=== PATIENT | male | born 1985 | race Caucasian/White ===

== ENCOUNTER 2016-04-07 00:49 | Emergency (ER) | payer SELFPAY ==
[2016-04-07 01:03] VITALS: BP 153/88; PULSE 88; RESP 16; TEMP 97.1
--- NOTE | 2016-04-07 01:18 | ED ---
General Adult HPI - General Chief complaint: Alcohol Stated complaint: ETOH Time Seen by Provider: 04/07/16 00:49 Source: patient, EMS, RN notes reviewed, old records reviewed Mode of arrival: EMS Limitations: no limitations - History of Present Illness Initial comments: This is a 22-year-old male brought to the emergency room today for evaluation by for here and placed chronic, patient is brought in for evaluation, patient's brought in for being found passed out at a stop sign in his car. Patient admitted to drinking alcohol tonight. Denies any other complaints. Per PD please had [place] injury, per patient he has no complaints no injury, the car was imperfectly working order, patient denies other drugs, does admit to alcohol again, no history of alcohol draw Review of Systems ROS Statement: Those systems with pertinent positive or pertinent negative responses have been documented in the HPI. ROS Other: All systems not noted in ROS Statement are negative. Past Medical History Past Medical History: No Reported History History of Any Multi-Drug Resistant Organisms: None Reported Past Surgical History: No Surgical Hx Reported Past Psychological History: No Psychological Hx Reported Smoking Status: Current every day smoker Past Alcohol Use History: Daily Past Drug Use History: None Reported General Exam Limitations: no limitations General appearance: alert, in no apparent distress Head exam: Present: atraumatic, normocephalic, normal inspection Eye exam: Present: normal appearance, PERRL, EOMI. Absent: scleral icterus, conjunctival injection, periorbital swelling ENT exam: Present: normal exam, mucous membranes moist Neck exam: Present: normal inspection. Absent: tenderness, meningismus, lymphadenopathy Respiratory exam: Present: normal lung sounds bilaterally. Absent: respiratory distress, wheezes, rales, rhonchi, stridor Cardiovascular Exam: Present: regular rate, normal rhythm, normal heart sounds. Absent: systolic murmur, diastolic murmur, rubs, gallop, clicks GI/Abdominal exam: Present: soft, normal bowel sounds. Absent: distended, tenderness, guarding, rebound, rigid Extremities exam: Present: normal inspection, full ROM, normal capillary refill. Absent: tenderness, pedal edema, joint swelling, calf tenderness Back exam: Present: normal inspection Neurological exam: Present: alert, oriented X3, CN II-XII intact Psychiatric exam: Present: normal affect, normal mood Skin exam: Present: warm, dry, intact, normal color. Absent: rash Course Vital Signs 04/07/16 00:56 Temperature 97.1 F L Pulse Rate 88 Respiratory 16 Rate Blood Pressure 153/88 O2 Sat by Pulse 98 Oximetry - Reevaluation(s) Reevaluation #1: 04/07/16 01:17 Patient's in no acute distress Medical Decision Making - Medical Decision Making 30 male here for evaluation of alcohol intoxication, patient admits positive EtOH, no history of withdrawal, vital signs normal and stable, exam is normal patient can be discharged for clearance to long-term Disposition Clinical Impression: Alcoholic intoxication Disposition: HOME SELF-CARE Condition: Fair Instructions: Alcohol Intoxication (ED) Referrals: None,Stated [Primary Care Provider] - 1-2 days
== END 2016-04-07 01:36 | disposition home or self-care (01) ==
LOC: EC 00:49
DX: F10.129 Alcohol abuse with intoxication, unspecified (principal); F17.200 Nicotine dependence, unspecified, uncomplicated
CPT/HCPCS: 82075; 99284

== ENCOUNTER 2019-05-08 10:51 | Inpatient (IN) | payer OTHER ==
[2019-05-08] MEDS ORDERED: ONDANSETRON 4 MG/2 ML VIAL IVP STA (11:13)
[2019-05-08] MEDS ORDERED: SODIUM CHLORIDE 0.9% 2,000 ML IV STA (11:13)
--- NOTE | 2019-05-08 11:28 | ED ---
Abdominal Pain HPI - General Chief Complaint: Abdominal Pain Stated Complaint: fever, cough Time Seen by Provider: 05/08/19 11:05 Source: patient, RN notes reviewed Mode of arrival: ambulatory Limitations: no limitations - History of Present Illness Initial Comments: This a 33-year-old male presents emergency Department chief complaint of abdominal pain, nausea vomiting. Patient states started 3 days ago sharp squeezing-type midabdominal pain. Patient states pain is subsided some he has had continuous vomiting and low-grade temps. Patient denies any sick contacts. Patient denies any prior medical history no abdominal surgeries no dysuria no he maturia denies any hematemesis or coffee-ground emesis. - Related Data Allergies Allergy/AdvReac Type Severity Reaction Status Date / Time No Known Allergies Allergy Verified 05/08/19 11:04 Review of Systems ROS Statement: Those systems with pertinent positive or pertinent negative responses have been documented in the HPI. ROS Other: All systems not noted in ROS Statement are negative. Past Medical History Past Medical History: No Reported History History of Any Multi-Drug Resistant Organisms: None Reported Past Surgical History: No Surgical Hx Reported Past Psychological History: No Psychological Hx Reported Smoking Status: Current every day smoker Past Alcohol Use History: Daily Past Drug Use History: None Reported General Exam Limitations: no limitations General appearance: alert, in no apparent distress Head exam: Present: atraumatic, normocephalic, normal inspection Eye exam: Present: normal appearance, PERRL, EOMI. Absent: scleral icterus, conjunctival injection, periorbital swelling ENT exam: Present: normal exam, normal oropharynx, mucous membranes moist Neck exam: Present: normal inspection. Absent: tenderness, meningismus, lymphadenopathy Respiratory exam: Present: normal lung sounds bilaterally. Absent: respiratory distress, wheezes, rales, rhonchi, stridor Cardiovascular Exam: Present: normal rhythm, tachycardia, normal heart sounds. Absent: systolic murmur, diastolic murmur, rubs, gallop, clicks GI/Abdominal exam: Present: soft, tenderness, normal bowel sounds. Absent: distended, guarding, rebound, rigid Back exam: Absent: CVA tenderness (R), CVA tenderness (L) Skin exam: Present: warm, dry, intact, normal color. Absent: rash Course Vital Signs 05/08/19 05/08/19 11:01 11:04 Temperature 97.8 F Pulse Rate 128 H Respiratory 19 20 Rate Blood Pressure 137/93 O2 Sat by Pulse 99 Oximetry Medical Decision Making - Medical Decision Making 33-year-old presented for abdominal pain. CT shows evidence of mid gut volvulus with obstruction. Discussed with Dr. Reed NG tube will be placed patient will be admitted - Lab Data Result diagrams: 05/08/19 11:51 05/08/19 11:51 Lab Results 05/08/19 05/08/19 05/08/19 Range/Units 11:51 11:51 11:51 WBC 8.5 (3.8-10.6) k/uL RBC 6.28 H (4.30-5.90) m/uL Hgb 20.0 H* (13.0-17.5) gm/dL Hct 56.8 H (39.0-53.0) % MCV 90.4 (80.0-100.0) fL MCH 31.9 (25.0-35.0) pg MCHC 35.2 (31.0-37.0) g/dL RDW 12.3 (11.5-15.5) % Plt Count 201 (150-450) k/uL Neutrophils % 76 % Lymphocytes % 9 % Monocytes % 13 % Eosinophils % 0 % Basophils % 0 % Neutrophils # 6.5 (1.3-7.7) k/uL Lymphocytes # 0.7 L (1.0-4.8) k/uL Monocytes # 1.1 H (0-1.0) k/uL Eosinophils # 0.0 (0-0.7) k/uL Basophils # 0.0 (0-0.2) k/uL Sodium 131 L (137-145) mmol/L Potassium 4.3 (3.5-5.1) mmol/L Chloride 90 L (98-107) mmol/L Carbon Dioxide 25 (22-30) mmol/L Anion Gap 16 mmol/L BUN 26 H (9-20) mg/dL Creatinine 1.01 (0.66-1.25) mg/dL Est GFR (CKD-EPI)AfAm >90 (>60 ml/min/1.73 sqM) Est GFR (CKD-EPI)NonAf >90 (>60 ml/min/1.73 sqM) Glucose 165 H (74-99) mg/dL Plasma Lactic Acid Ben 1.6 (0.7-2.0) mmol/L Calcium 10.5 H (8.4-10.2) mg/dL Total Bilirubin 1.4 H (0.2-1.3) mg/dL AST 37 (17-59) U/L ALT 44 (4-49) U/L Alkaline Phosphatase 51 (38-126) U/L Total Protein 8.1 (6.3-8.2) g/dL Albumin 4.9 (3.5-5.0) g/dL Amylase 56 (30-110) U/L Lipase 120 (23-300) U/L Urine Color Urine Appearance (Clear) Urine pH (5.0-8.0) Ur Specific [place] (1.001-1.035) Urine Protein (Negative) Urine Glucose (UA) (Negative) Urine Ketones (Negative) Urine Blood (Negative) Urine Nitrite (Negative) Urine Bilirubin (Negative) Urine Urobilinogen (<2.0) mg/dL Ur Leukocyte Esterase (Negative) Urine RBC (0-5) /hpf Urine WBC (0-5) /hpf Urine Bacteria (None) /hpf Hyaline Casts (0-2) /lpf Urine Mucus (None) /hpf 03/13/20 Range/Units 12:20 WBC (3.8-10.6) k/uL RBC (4.30-5.90) m/uL Hgb (13.0-17.5) gm/dL Hct (39.0-53.0) % MCV (80.0-100.0) fL MCH (25.0-35.0) pg MCHC (31.0-37.0) g/dL RDW (11.5-15.5) % Plt Count (150-450) k/uL Neutrophils % % Lymphocytes % % Monocytes % % Eosinophils % % Basophils % % Neutrophils # (1.3-7.7) k/uL Lymphocytes # (1.0-4.8) k/uL Monocytes # (0-1.0) k/uL Eosinophils # (0-0.7) k/uL Basophils # (0-0.2) k/uL Sodium (137-145) mmol/L Potassium (3.5-5.1) mmol/L Chloride (98-107) mmol/L Carbon Dioxide (22-30) mmol/L Anion Gap mmol/L BUN (9-20) mg/dL Creatinine (0.66-1.25) mg/dL Est GFR (CKD-EPI)AfAm (>60 ml/min/1.73 sqM) Est GFR (CKD-EPI)NonAf (>60 ml/min/1.73 sqM) Glucose (74-99) mg/dL Plasma Lactic Acid Ben (0.7-2.0) mmol/L Calcium (8.4-10.2) mg/dL Total Bilirubin (0.2-1.3) mg/dL AST (17-59) U/L ALT (4-49) U/L Alkaline Phosphatase (38-126) U/L Total Protein (6.3-8.2) g/dL Albumin (3.5-5.0) g/dL Amylase (30-110) U/L Lipase (23-300) U/L Urine Color Yellow Urine Appearance Cloudy (Clear) Urine pH 6.0 (5.0-8.0) Ur Specific [place] >1.050 H (1.001-1.035) Urine Protein 2+ H (Negative) Urine Glucose (UA) Negative (Negative) Urine Ketones Trace H (Negative) Urine Blood Negative (Negative) Urine Nitrite Negative (Negative) Urine Bilirubin 1+ H (Negative) Urine Urobilinogen 3.0 (<2.0) mg/dL Ur Leukocyte Esterase Negative (Negative) Urine RBC 2 (0-5) /hpf Urine WBC 1 (0-5) /hpf Urine Bacteria Rare H (None) /hpf Hyaline Casts 21 H (0-2) /lpf Urine Mucus Many H (None) /hpf Disposition Clinical Impression: Midgut volvulus, Bowel obstruction Disposition: ADMITTED IP TO THIS [facility] Condition: Fair Referrals: None,Stated [Primary Care Provider] - 1-2 days
[2019-05-08 12:13] LABS: Basophils % (A) 0 %; Eosinophils % (A) 0 %; Lymphocytes # (A) 0.7 k/uL (1.0-4.8); Lymphocytes % (A) 9 %; MCH 31.9 pg (25.0-35.0); MCHC 35.2 g/dL (31.0-37.0); MCV 90.4 fL (80.0-100.0); Mean Platelet Volume 8.1; Monocytes # (A) 1.1 k/uL (0-1.0); Monocytes % (A) 13 %; Neutrophils # (A) 6.5 k/uL (1.3-7.7); Neutrophils % (A) 76 %; Platelet Count 201 k/uL (150-450); RBC 6.28 m/uL (4.30-5.90); RDW 12.3 % (11.5-15.5); WBC 8.5 k/uL (3.8-10.6)
[2019-05-08 12:15] LABS: HCT 56.8 % (39.0-53.0)
--- NOTE | 2019-05-08 12:26 | CT ---
EXAMINATION TYPE: CT abdomen pelvis w con DATE OF EXAM: 05/08/2019 COMPARISON: HISTORY: epigastric pain CT DLP: 1321.2 mGycm Automated exposure control for dose reduction was used. TECHNIQUE: Helical acquisition of images from the lung bases through the pelvis have been completed. CONTRAST: Performed without Oral Contrast and with IV Contrast, patient injected with 100 mL of Isovue 300. FINDINGS: LUNG BASES: No significant abnormality is appreciated. AORTA: No significant abnormality is appreciated. LIVER/GB: Low-attenuation within the liver likely represents hepatic steatosis, liver is enlarged, ga llbladder is normal, correlate. PANCREAS: No significant abnormality is seen. SPLEEN: No significant abnormality is seen. ADRENALS: No significant abnormality is seen. KIDNEYS: No significant abnormality is seen. REPRODUCTIVE ORGANS: No significant abnormality is seen BOWEL: There are dilated loops of fluid-filled small bowel bowel present within much of the abdomen. Apparent twist of the root of the mesentery is present, axial images #41 through 50. Fourth portion of the duodenum courses to the right of midline. Ilium is not distended and is decompressed. Stomach is fluid-filled and distended. Diverticular changes associated with the sigmoid colon. FREE AIR: No Free Air visible. ASCITES: There is free fluid within the pelvis, inguinal regions and within the mesentery. PELVIC ADENOPATHY: None visualized. RETROPERITONEAL ADENOPATHY: No Retroperitoneal Adenopathy visible. URINARY BLADDER: No significant abnormality is seen. OSSEOUS STRUCTURES: No significant abnormality is seen. IMPRESSION: FINDINGS COMPATIBLE WITH MIDGUT VOLVULUS, SMALL BOWEL OBSTRUCTION, RECOMMEND SURGICAL CONSULT. Result s relayed to Dr. Hurtado telephonically at the time of interpretation.
[2019-05-08 12:27] LABS: ALT 44 U/L (4-49); AST 37 U/L (17-59); African American GFR (CKD) >90 (>60 ml/min/1.73 sqM); Albumin 4.9 g/dL (3.5-5.0); Alkaline Phosphatase 51 U/L (38-126); Amylase 56 U/L (30-110); Anion Gap 16 mmol/L; Blood Urea Nitrogen 26 mg/dL (9-20); Calcium 10.5 mg/dL (8.4-10.2); Carbon Dioxide 25 mmol/L (22-30); Chloride 90 mmol/L (98-107); Glucose 165 mg/dL (74-99); Non-African American GFR(CKD) >90 (>60 ml/min/1.73 sqM); Potassium 4.3 mmol/L (3.5-5.1); Sodium 131 mmol/L (137-145); Total Bilirubin 1.4 mg/dL (0.2-1.3); Total Protein 8.1 g/dL (6.3-8.2)
[2019-05-08] MEDS ORDERED: LORazepam 2 MG/ML INJ IV STA (12:33)
[2019-05-08 12:41] LABS: Appearance,Urine Cloudy (Clear); Bacteria,Urine Rare /hpf; Bilirubin,Urine 1+ (Negative); Blood,Urine Negative (Negative); Color,Urine Yellow; Glucose,Urine (UA) Negative (Negative); Hyaline Casts,Urine 21 /lpf (0-2); Ketones,Urine Trace (Negative); Leukocyte Esterase,Urine Negative (Negative); Mucus,Urine Many /hpf; Nitrite,Urine Negative (Negative); Protein,Urine 2+ (Negative); RBC,Urine 2 /hpf (0-5); WBC,Urine 1 /hpf (0-5)
[2019-05-08 12:46] LABS: Specific Gravity,Urine >1.050 (1.001-1.035)
[2019-05-08] MEDS ORDERED: NALOXONE 0.4 MG/ML 1 ML VIAL IV PRN ×2 (13:03→16:52)
[2019-05-08] MEDS ORDERED: ONDANSETRON 4 MG/2 ML VIAL IVP PRN (13:10)
[2019-05-08] MEDS ORDERED: MORPHINE SULFATE 4 MG/ML SYRINGE IV PRN (13:10)
--- NOTE | 2019-05-08 14:27 | XR ---
EXAMINATION TYPE: XR chest 1V confirm line [facility] DATE OF EXAM: 05/08/2019 COMPARISON: 05/08/2019 HISTORY: NG tube placement TECHNIQUE: Single frontal view of the chest is obtained. FINDINGS: There is no focal air space opacity, pleural effusion, or pneumothorax seen. The cardiac silhouette size is within normal limits. The osseous structures are intact. There is no evidence of a nasogastric tube as seen. There is tubing along the right lateral chest extending cephalad. No ove rt failure. IMPRESSION: 1. No evidence of acute intrathoracic process. There is tubing along the right lateral chest. This ex tends out of the [id number]. No appropriately placed definitive nasogastric tube is identified.
--- NOTE | 2019-05-08 14:30 | XR ---
EXAMINATION TYPE: XR cervical spine 1V DATE OF EXAM: 05/08/2019 COMPARISON: NONE HISTORY: Enteric tube placement TECHNIQUE: Single view of the cervical spine was obtained FINDINGS: Nasogastric tube is coiled in the posterior nasopharynx and oropharynx. Lung apices are wel l aerated. Osseous structures are grossly intact. IMPRESSION: Coiled nasogastric tube in the nasopharynx and oropharynx.
--- NOTE | 2019-05-08 14:44 | XR ---
EXAMINATION TYPE: XR chest 1V DATE OF EXAM: 05/08/2019 COMPARISON: NONE HISTORY: Nasogastric tube placement TECHNIQUE: Single frontal view of the chest is obtained. FINDINGS: There is no focal air space opacity, pleural effusion, or pneumothorax seen. The cardiac silhouette size is within normal limits. The osseous structures are intact. Nasogastric tube has be en placed with its fenestrated portion passage gastroesophageal junction overlying the left upper ryan drant in the expected location of the stomach. IMPRESSION: Appropriately placed enteric tube. No acute cardiopulmonary process.
[2019-05-08] MEDS: SODIUM CHLORIDE 0.9% 1,000 ML IV SCH (15:02)
[2019-05-08] MEDS ORDERED: IV FLUID CONTINUATION 975 ML IV ONE (15:42)
[2019-05-08] MEDS ORDERED: fentaNYL (PF) 50 MCG/ML 2 ML AMP IV ONE (16:25)
[2019-05-08] MEDS ORDERED: MIDAZOLAM 2 MG/2 ML VIAL IV ONE (16:25)
[2019-05-08] MEDS ORDERED: MIDAZOLAM 2 MG/2 ML VIAL IV PRN (16:52)
[2019-05-08] MEDS ORDERED: HYDROmorphone 0.5 MG/0.5 ML SYRINGE IVP PRN (16:52)
[2019-05-08] MEDS ORDERED: fentaNYL (PF) 50 MCG/ML 2 ML AMP IVP PRN (16:52)
[2019-05-08] MEDS ORDERED: fentaNYL (PF) 50 MCG/ML 2 ML AMP ONE (17:01)
[2019-05-08] MEDS ORDERED: PROPOFOL 10 MG/ML 20 ML VIAL IV ONE (17:01)
[2019-05-08] MEDS ORDERED: ROCURONIUM BROMIDE 10 MG/ML 5 ML VIAL IV ONE (17:01)
[2019-05-08] MEDS ORDERED: SUCCINYLCHOLINE CHLORIDE 100 MG/5 ML SYR IV ONE (17:01)
[2019-05-08] MEDS ORDERED: NEOSTIGMINE 1 MG/ML 10 ML VIAL ONE (17:01)
[2019-05-08] MEDS ORDERED: GLYCOPYRROLATE 0.2 MG/ML 2 ML VIAL ONE (17:01)
[2019-05-08] MEDS ORDERED: MIDAZOLAM 2 MG/2 ML VIAL ONE (17:01)
[2019-05-08] MEDS ORDERED: LIDOCAINE 1% INJ 10MG/ML (20 ML MDV) ONE (17:01)
--- NOTE | 2019-05-08 17:14 | P.GSHP ---
History of Present Illness H&P Date: 05/08/19 Chief Complaint: abdominal pain, nausea and vomiting The patient is a 33-year-old man who began feeling ill on Saturday. He's been having mid abdominal pain along with nausea and vomiting. He had a low-grade fever. He persisted in feeling worse and worse and wasn't having any gas or bowel movement so he came into the emergency department. Computed tomography scan demonstrated a mid gut volvulus. He denies any prior abdominal surgery. Had been feeling well before this. Has not had any problems with a lot of diarrhea, blood in the stool or dark tarry stool. - Review of Systems All systems: negative Past Medical History Past Medical History: No Reported History History of Any Multi-Drug Resistant Organisms: None Reported Past Surgical History: No Surgical Hx Reported Past Anesthesia/Blood Transfusion Reactions: Unable to Obtain Additional Past Anesthesia/Blood Transfusion Reaction / Comment(s): Pt has never had surgery Smoking Status: Current every day smoker - Past Family History Father Family Medical History: COPD Additional Family Medical History / Comment(s): Father is a smoker. Mother Family Medical History: No Reported History Additional Family Medical History / Comment(s): Mother is healthy Medications and Allergies Home Medications Medication Instructions Recorded Confirmed Type Dextroamphetamine/Amphetamine 20 mg PO DAILY 05/08/19 05/08/19 History [Dextroamp-Amphetamin 10 mg Tab] Allergies Allergy/AdvReac Type Severity Reaction Status Date / Time No Known Allergies Allergy Verified 05/08/19 13:23 Surgical - Exam Osteopathic Statement: *. No significant issues noted on an osteopathic structural exam other than those noted in the History and Physical/Consult. Vital Signs Temp Pulse Resp BP Pulse Ox 97.8 F 128 H 19 137/93 99 05/08/19 11:01 05/08/19 11:01 05/08/19 11:01 05/08/19 11:01 05/08/19 11:01 - General Appears uncomfortable. NG is draining granular brown material well developed, well nourished - Eyes normal ocular movement - ENT no hearing loss - Neck trachea midline - Respiratory normal expansion, clear to auscultation - Cardiovascular Rhythm: regular - Abdomen Abdomen: tender, bowel sounds (Hypoactive), no surgical scars, no guarding, no rigid, no rebound, distended Results - Labs 05/08/19 11:51 05/08/19 11:51 Abnormal Lab Results - Last 24 Hours (Table) 05/08/19 05/08/19 05/08/19 Range/Units 11:51 11:51 12:20 RBC 6.28 H (4.30-5.90) m/uL Hgb 20.0 H* (13.0-17.5) gm/dL Hct 56.8 H (39.0-53.0) % Lymphocytes # 0.7 L (1.0-4.8) k/uL Monocytes # 1.1 H (0-1.0) k/uL Sodium 131 L (137-145) mmol/L Chloride 90 L (98-107) mmol/L BUN 26 H (9-20) mg/dL Glucose 165 H (74-99) mg/dL Calcium 10.5 H (8.4-10.2) mg/dL Total Bilirubin 1.4 H (0.2-1.3) mg/dL Ur Specific [place] >1.050 H (1.001-1.035) Urine Protein 2+ H (Negative) Urine Ketones Trace H (Negative) Urine Bilirubin 1+ H (Negative) Urine Bacteria Rare H (None) /hpf Hyaline Casts 21 H (0-2) /lpf Urine Mucus Many H (None) /hpf Diabetes panel 05/08/19 Range/Units 11:51 Sodium 131 L (137-145) mmol/L Potassium 4.3 (3.5-5.1) mmol/L Chloride 90 L (98-107) mmol/L Carbon Dioxide 25 (22-30) mmol/L BUN 26 H (9-20) mg/dL Creatinine 1.01 (0.66-1.25) mg/dL Glucose 165 H (74-99) mg/dL Calcium 10.5 H (8.4-10.2) mg/dL AST 37 (17-59) U/L ALT 44 (4-49) U/L Alkaline Phosphatase 51 (38-126) U/L Total Protein 8.1 (6.3-8.2) g/dL Albumin 4.9 (3.5-5.0) g/dL Calcium panel 05/08/19 Range/Units 11:51 Calcium 10.5 H (8.4-10.2) mg/dL Albumin 4.9 (3.5-5.0) g/dL Pituitary panel 05/08/19 Range/Units 11:51 Sodium 131 L (137-145) mmol/L Potassium 4.3 (3.5-5.1) mmol/L Chloride 90 L (98-107) mmol/L Carbon Dioxide 25 (22-30) mmol/L BUN 26 H (9-20) mg/dL Creatinine 1.01 (0.66-1.25) mg/dL Glucose 165 H (74-99) mg/dL Calcium 10.5 H (8.4-10.2) mg/dL Adrenal panel 05/08/19 Range/Units 11:51 Sodium 131 L (137-145) mmol/L Potassium 4.3 (3.5-5.1) mmol/L Chloride 90 L (98-107) mmol/L Carbon Dioxide 25 (22-30) mmol/L BUN 26 H (9-20) mg/dL Creatinine 1.01 (0.66-1.25) mg/dL Glucose 165 H (74-99) mg/dL Calcium 10.5 H (8.4-10.2) mg/dL Total Bilirubin 1.4 H (0.2-1.3) mg/dL AST 37 (17-59) U/L ALT 44 (4-49) U/L Alkaline Phosphatase 51 (38-126) U/L Total Protein 8.1 (6.3-8.2) g/dL Albumin 4.9 (3.5-5.0) g/dL - Imaging CT scan - chest: report reviewed, image reviewed Assessment and Plan (1) Bowel obstruction Current Visit: Yes Status: Acute Code(s): K56.609 - UNSP INTESTNL OBST, UNSP TO PARTIAL VERSUS COMPLETE OBST SNOMED Code(s): 34240701 (2) Midgut volvulus Current Visit: Yes Status: Acute Code(s): Q43.3 - CONGENITAL MALFORMATIONS OF INTESTINAL FIXATION SNOMED Code(s): 69741570 Plan: The patient has been hydrated and the markedly distended stomach has been decompressed. We discussed the potential causes of the volvulus and surgical treatment. The procedure risk and complications were discussed. Usual postoperative course was discussed. Questions were encouraged and answered. I'll proceed with a laparotomy today.
[2019-05-08] MEDS ORDERED: ceFAZolin 1,000 MG VIAL IVPB ONE (17:20)
--- NOTE | 2019-05-08 18:08 | P.OP ---
Date of Procedure: 05/08/19 Preoperative Diagnosis: Small bowel obstruction, midgut volvulus Postoperative Diagnosis: Same Procedure(s) Performed: Exploratory laparotomy, release of small bowel obstruction, incidental appendectomy Anesthesia: [place] Surgeon: Anabell Reed Estimated Blood Loss (ml): 5 Pathology: other (Appendix) Condition: stable Disposition: PACU Indications for Procedure: The patient had presented with a three-day history of abdominal pain and vomiting. CT was indicated to of a midgut volvulus Description of Procedure: The patient's taken the operative suite where he is prepped and draped in the usual sterile manner under general endotracheal anesthetic. A midline incision was made. Small bleeding points were controlled with electrocautery. The abdominal cavity is entered. Markedly dilated proximal loops with decompressed distal loops are identified. The small bowel was run from distal to proximally. There is a area noted where there is a linear compression on the bowel at the site of obstruction. Proximally to that the bowel was markedly dilated. The bowel was edematous and cayet[place]. It was brought up through the abdominal incision and the volvulus was reduced. There is significant enteric contents in the small bowel which was milked back into the stomach. At least a liter and a half of enteric contents was aspirated. The small bowel was then examined. Although there is bowel wall edema of the entirety of the bowel did show peristalsis to stimulation. The spleen was unremarkable liver was smooth. There is a small gallbladder without any obvious stones. The appendix was very elongated with small appendicolith present so an incidental appendectomy was carried out. The mesentery was divided in suture ligated with 0 Vicryl. The base the appendix was suture ligated with 0 Vicryl. The small bowel was then brought into the abd ominal cavity and lay in gentle loops. Was covered with the omentum. The fashion peritoneum was closed with 1 PDS. The skin was closed with pretty. A sterile dressing was applied. He tolerated the procedure without difficulty and was taken recovery room in satisfactory condition. According to or personnel, WERE correct.
[2019-05-08] MEDS: ROPIVACAINE 250 MG, fentaNYL (PF) 625 MCG in SODIUM CHLORIDE 0.9% 188 ML EPIDURAL PRN ×2 (18:45→19:16)
[2019-05-08] MEDS ORDERED: LACTATED RINGERS 1,000 ML IV ONE ×2 (18:45)
[2019-05-08] MEDS: LACTATED RINGERS 1,000 ML IV SCH (20:03)
[2019-05-08] MEDS: D5-0.45% NACL WITH KCL 20MEQ/L 1,000 ML IV SCH (22:15)
[2019-05-09] MEDS: SODIUM CHLORIDE 0.9% 1,000 ML IV SCH ×2 (03:38→15:24)
[2019-05-09] MEDS: D5-0.45% NACL WITH KCL 20MEQ/L 1,000 ML IV SCH ×3 (03:39→23:27)
[2019-05-09 07:50] LABS: African American GFR (CKD) >90 (>60 ml/min/1.73 sqM); Anion Gap 11 mmol/L; Blood Urea Nitrogen 23 mg/dL (9-20); Calcium 8.5 mg/dL (8.4-10.2); Carbon Dioxide 29 mmol/L (22-30); Chloride 95 mmol/L (98-107); Glucose 118 mg/dL (74-99); Non-African American GFR(CKD) >90 (>60 ml/min/1.73 sqM); Potassium 3.8 mmol/L (3.5-5.1); Sodium 135 mmol/L (137-145)
[2019-05-09 08:39] LABS: Basophils % (A) 0 %; Eosinophils # (A) 0.1 k/uL (0-0.7); Eosinophils % (A) 1 %; Lymphocytes % (A) 16 %; MCH 30.7 pg (25.0-35.0); MCHC 33.5 g/dL (31.0-37.0); MCV 91.6 fL (80.0-100.0); Mean Platelet Volume 8.2; Monocytes # (A) 0.9 k/uL (0-1.0); Monocytes % (A) 14 %; Neutrophils # (A) 4.2 k/uL (1.3-7.7); Neutrophils % (A) 65 %; Platelet Count 171 k/uL (150-450); RBC 5.35 m/uL (4.30-5.90); RDW 12.5 % (11.5-15.5); WBC 6.4 k/uL (3.8-10.6)
[2019-05-09 08:47] LABS: HGB 16.4 gm/dL (13.0-17.5)
[2019-05-09] MEDS: PANTOPRAZOLE 40 MG/10 ML VIAL IV SCH (09:10)
--- NOTE | 2019-05-09 09:37 | P.PN ---
Subjective Progress Note Date: 05/09/19 Principal diagnosis: Status post release of small bowel obstruction The patient's postoperative day 1 release of small bowel obstruction. The NG is in place. He has no nausea. Pain is controlled with the epidural. No shortness of breath. Objective - Vital Signs Vital signs: Vital Signs Temp 99.4 F 05/09/19 05:24 Pulse 94 05/09/19 05:24 Resp 16 05/09/19 05:24 BP 155/96 05/09/19 05:24 Pulse Ox 97 05/09/19 05:24 Intake & Output 05/08/19 05/09/19 05/09/19 18:59 06:59 18:59 Intake Total 875 57.5 Output Total 545 1075 Balance 330 -1017.5 Weight 84.368 kg Intake: IV 875 57.5 Output: Gastric Drainage 300 1000 Urine 240 75 Stool 0 Estimated Blood Loss 5 Other: Voiding Method Toilet Indwelling Catheter Urinal - Constitutional General appearance: Present: cooperative, no acute distress - Respiratory Respiratory: bilateral: CTA - Cardiovascular Rhythm: regular - Gastrointestinal General gastrointestinal: Present: absent bowel sounds, soft Localized gastrointestinal: surgical scar: diffuse (Dressing is intact clean and dry) - Labs CBC & Chem 7: 05/09/19 06:58 05/09/19 06:58 Labs: Abnormal Lab Results - Last 24 Hours (Table) 05/08/19 05/08/19 05/08/19 Range/Units 11:51 11:51 12:20 RBC 6.28 H (4.30-5.90) m/uL Hgb 20.0 H* (13.0-17.5) gm/dL Hct 56.8 H (39.0-53.0) % Lymphocytes # 0.7 L (1.0-4.8) k/uL Monocytes # 1.1 H (0-1.0) k/uL Sodium 131 L (137-145) mmol/L Chloride 90 L (98-107) mmol/L BUN 26 H (9-20) mg/dL Glucose 165 H (74-99) mg/dL Calcium 10.5 H (8.4-10.2) mg/dL Total Bilirubin 1.4 H (0.2-1.3) mg/dL Ur Specific [place] >1.050 H (1.001-1.035) Urine Protein 2+ H (Negative) Urine Ketones Trace H (Negative) Urine Bilirubin 1+ H (Negative) Urine Bacteria Rare H (None) /hpf Hyaline Casts 21 H (0-2) /lpf Urine Mucus Many H (None) /hpf 05/08/ Range/Units 06:58 RBC (4.30-5.90) m/uL Hgb (13.0-17.5) gm/dL Hct (39.0-53.0) % Lymphocytes # (1.0-4.8) k/uL Monocytes # (0-1.0) k/uL Sodium 135 L (137-145) mmol/L Chloride 95 L (98-107) mmol/L BUN 23 H (9-20) mg/dL Glucose 118 H (74-99) mg/dL Calcium (8.4-10.2) mg/dL Total Bilirubin (0.2-1.3) mg/dL Ur Specific [place] (1.001-1.035) Urine Protein (Negative) Urine Ketones (Negative) Urine Bilirubin (Negative) Urine Bacteria (None) /hpf Hyaline Casts (0-2) /lpf Urine Mucus (None) /hpf Assessment and Plan (1) Bowel obstruction Current Visit: Yes Status: Acute Code(s): K56.609 - UNSP INTESTNL OBST, UNSP TO PARTIAL VERSUS COMPLETE OBST SNOMED Code(s): 47214933 (2) Midgut volvulus Current Visit: Yes Status: Acute Code(s): Q43.3 - CONGENITAL MALFORMATIONS OF INTESTINAL FIXATION SNOMED Code(s): 74111562 Plan: Continue NG tube decompression and IV hydration. Continue epidural. Encourage incentive spirometry. Progressing slowly.
[2019-05-09 13:12] VITALS: BMI 23.2
[2019-05-09] MEDS: LACTATED RINGERS 1,000 ML IV SCH (15:24)
--- NOTE | 2019-05-09 16:04 | P.PN ---
Progress Note - Text Progress Note Date: 05/09/19 POD 1, cath day 2 from ex lap. pain well controlled, epidural continues at 6- 8cc/hr. site clean and dry. no AMS, no pruritis, or lower ext weakness. brunson cath per surgical team. continue epidural.
[2019-05-09] MEDS: ROPIVACAINE 250 MG, fentaNYL (PF) 625 MCG in SODIUM CHLORIDE 0.9% 188 ML EPIDURAL PRN (18:24)
[2019-05-10] MEDS: D5-0.45% NACL WITH KCL 20MEQ/L 1,000 ML IV SCH ×3 (06:02→17:06)
[2019-05-10] MEDS: SODIUM CHLORIDE 0.9% 1,000 ML IV SCH ×2 (06:03→17:00)
--- NOTE | 2019-05-10 06:46 | P.PN ---
Progress Note - Text Progress Note Date: 05/10/19 POD 2, Cath day 3 from ex lap. doing very well, cath clean and dry. NGT still in place, able to ambulate in the room. no lower ext weakness, no pruritis, no mental status changes. continue until tomorrow. keep running at 6cc/hr. anesthesia with questions #[id number]
--- NOTE | 2019-05-10 09:25 | P.PN ---
Subjective Progress Note Date: 05/10/19 Principal diagnosis: Status post release of small bowel obstruction Patient is postoperative day 2 from release of bowel obstruction. Pain is well controlled with epidural. He is using his incentive spirometry. He was up to a chair for small amount of time yesterday Objective - Vital Signs Vital signs: Vital Signs Temp 98.0 F 05/10/19 06:08 Pulse 78 05/10/19 06:08 Resp 16 05/10/19 06:08 BP 152/83 05/10/19 06:08 Pulse Ox 95 05/10/19 06:08 Intake & Output 05/09/19 05/10/19 05/10/19 18:59 06:59 18:59 Output Total 480 1650 Balance -480 -1650 Weight 84.368 kg Output: Gastric Drainage 1200 Urine 480 450 Other: Voiding Method Indwelling Catheter Indwelling Catheter - Constitutional General appearance: Present: cooperative, no acute distress - Respiratory Respiratory: bilateral: CTA, diminished (Mildly at the bases) - Cardiovascular Rhythm: regular - Gastrointestinal General gastrointestinal: Present: absent bowel sounds, soft Localized gastrointestinal: surgical scar: diffuse (Dressing is intact clean and dry) - Labs CBC & Chem 7: 05/09/19 06:58 05/09/19 06:58 Assessment and Plan (1) Bowel obstruction Current Visit: Yes Status: Acute Code(s): K56.609 - UNSP INTESTNL OBST, UNSP TO PARTIAL VERSUS COMPLETE OBST SNOMED Code(s): 23965466 (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 Continue epidural. Encourage incentive spirometry. Await return of bowel function. Progressing slowly.
[2019-05-10] MEDS: PANTOPRAZOLE 40 MG/10 ML VIAL IV SCH (09:33)
[2019-05-10] MEDS: LACTATED RINGERS 1,000 ML IV SCH (16:59)
[2019-05-11] MEDS: D5-0.45% NACL WITH KCL 20MEQ/L 1,000 ML IV SCH ×2 (00:37→06:32)
[2019-05-11] MEDS: ROPIVACAINE 250 MG, fentaNYL (PF) 625 MCG in SODIUM CHLORIDE 0.9% 188 ML EPIDURAL PRN (07:43)
[2019-05-11] MEDS: SODIUM CHLORIDE 0.9% 1,000 ML IV SCH ×2 (07:48→21:35)
[2019-05-11] MEDS: PANTOPRAZOLE 40 MG/10 ML VIAL IV SCH (07:49)
[2019-05-11] MEDS ORDERED: HYDROcodone/APAP 15 ML SOLUTION PO PRN (08:57)
[2019-05-11 09:12] LABS: HCT 45.7 % (39.0-53.0); HGB 14.9 gm/dL (13.0-17.5); MCH 30.7 pg (25.0-35.0); MCHC 32.6 g/dL (31.0-37.0); MCV 94.1 fL (80.0-100.0); Mean Platelet Volume 7.5; Platelet Count 188 k/uL (150-450); RBC 4.86 m/uL (4.30-5.90); WBC 4.5 k/uL (3.8-10.6)
[2019-05-11] MEDS: AMPHETAMINE PO SCH (09:16)
[2019-05-11] MEDS: DEXTROAMPHETAMINE PO SCH (09:16)
--- NOTE | 2019-05-11 09:24 | P.PN ---
Subjective Progress Note Date: 05/11/19 Principal diagnosis: Status post release of small bowel obstruction The patient is doing well today. He feels "rumbling" in his abdomen. No flatus. Pain is well controlled. No chest pain or shortness of breath. Objective - Vital Signs Vital signs: Vital Signs Temp 97.0 F L 05/11/19 05:00 Pulse 70 05/11/19 05:00 Resp 18 05/11/19 05:00 BP 152/85 05/11/19 05:00 Pulse Ox 97 05/11/19 05:00 Intake & Output 05/10/19 05/11/19 05/11/19 18:59 06:59 18:59 Intake Total 0 223.9 Output Total 750 Balance -750 223.9 Intake: Intake, IV Titration 223.9 Amount Ropivacaine 250 mg 223.9 fentaNYL (PF) 625 mcg In Sodium Chloride 0.9% 188 ml @ Per Protocol EPIDURAL .Q0M PRN Rx#: [id number] Oral 0 Output: Urine 750 Other: Voiding Method Indwelling Catheter Indwelling Catheter - Constitutional General appearance: Present: cooperative, no acute distress - Respiratory Respiratory: bilateral: CTA - Cardiovascular Rhythm: regular - Gastrointestinal General gastrointestinal: Present: decreased bowel sounds (Much improved), soft Localized gastrointestinal: surgical scar: diffuse (Dressings intact clean and dry) - Labs CBC & Chem 7: 05/11/19 08:45 05/09/19 06:58 Assessment and Plan (1) Bowel obstruction Current Visit: Yes Status: Acute Code(s): K56.609 - UNSP INTESTNL OBST, UNSP TO PARTIAL VERSUS COMPLETE OBST SNOMED Code(s): 59650551 (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 We'll put the NG tube t o gravity. If he is able to tolerate that it will be clamped and hopefully removed later today. Epidural will likely be removed today. Progressing well.
[2019-05-11 09:38] LABS: African American GFR (CKD) >90 (>60 ml/min/1.73 sqM); Anion Gap 8 mmol/L; Blood Urea Nitrogen 15 mg/dL (9-20); Calcium 8.6 mg/dL (8.4-10.2); Carbon Dioxide 27 mmol/L (22-30); Chloride 103 mmol/L (98-107); Glucose 93 mg/dL (74-99); Non-African American GFR(CKD) >90 (>60 ml/min/1.73 sqM); Potassium 4.2 mmol/L (3.5-5.1); Sodium 138 mmol/L (137-145)
--- NOTE | 2019-05-11 11:15 | P.PN ---
Progress Note - Text Progress Note Date: 05/11/19 33 yo male s/p Exp. laparotomy. POD#3. VAS=0 at 6cc/hr. Adequate pain control. No nausea, no vomiting, no headache. No motor or sensory deficit. No itching. Epidural catheter insertion site is clean, dressing intact. Plan is to d/c epidural today.
[2019-05-12] MEDS: METOCLOPRAMIDE 5 MG/ML 2 ML VIAL IVP PRN ×2 (04:17→09:07)
[2019-05-12 07:26] VITALS: RESP 18
[2019-05-12] MEDS: DEXTROAMPHETAMINE PO SCH (09:01)
[2019-05-12] MEDS: AMPHETAMINE PO SCH (09:01)
[2019-05-12] MEDS: PANTOPRAZOLE 40 MG/10 ML VIAL IV SCH (09:05)
[2019-05-12] MEDS: SODIUM CHLORIDE 0.9% 1,000 ML IV SCH (11:45)
[2019-05-12] MEDS: HYDROcodone/APAP 5-325MG 1 EACH TAB PO PRN ×3 (12:56→21:34)
--- NOTE | 2019-05-12 14:29 | P.PN ---
Subjective Progress Note Date: 05/12/19 Principal diagnosis: Status post release of small bowel obstruction The patient is doing well. No nausea or vomiting, no shortness of breath. He has started passing flatus and has had several bowel movements. Tolerating clear liquids. Epidural was removed this morning. Objective - Vital Signs Vital signs: Vital Signs Temp 99 F 05/12/19 05:00 Pulse 83 05/12/19 05:00 Resp 18 05/12/19 05:00 BP 149/87 05/12/19 05:00 Pulse Ox 96 05/12/19 05:00 Intake & Output 05/11/19 05/12/19 05/12/19 18:59 06:59 18:59 Intake Total 223.9 300 Output Total 600 3 Balance -376.1 297 Weight 84.368 kg Intake: Intake, IV Titration 223.9 Amount Ropivacaine 250 mg 223.9 fentaNYL (PF) 625 mcg In Sodium Chloride 0.9% 188 ml @ Per Protocol EPIDURAL .Q0M PRN Rx#: [id number] Oral 300 Output: Urine 600 Stool 2 Urine/Stool Mix 1 Other: Voiding Method Indwelling Catheter Indwelling Catheter # Voids 1 # Bowel Movements 0 1 - Constitutional General appearance: Present: cooperative, no acute distress - Respiratory Respiratory: bilateral: CTA - Cardiovascular Rhythm: regular - Gastrointestinal General gastrointestinal: Present: normal bowel sounds, soft (Mild tympany to percussion) Localized gastrointestinal: surgical scar: diffuse (Dressing intact clean and dry) - Labs CBC & Chem 7: 05/11/19 08:45 05/11/19 08:45 Assessment and Plan (1) Bowel obstruction Current Visit: Yes Status: Acute Code(s): K56.609 - UNSP INTESTNL OBST, UNSP TO PARTIAL VERSUS COMPLETE OBST SNOMED Code(s): 38666637 (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 Let the patient shower. tire groover to oral pain medications. Likely ready for discharge tomorrow afternoon if he continues to progress.
[2019-05-12] MEDS: NAPROXEN 250 MG TAB PO SCH (17:28)
[2019-05-13] MEDS: HYDROcodone/APAP 5-325MG 1 EACH TAB PO PRN ×3 (01:34→09:38)
[2019-05-13 06:09] VITALS: BP 136/80; PULSE 55; TEMP 97.7
[2019-05-13] MEDS: AMPHETAMINE PO SCH (07:34)
[2019-05-13] MEDS: DEXTROAMPHETAMINE PO SCH (07:34)
[2019-05-13] MEDS: SODIUM CHLORIDE 0.9% 1,000 ML IV SCH ×2 (07:34→11:27)
[2019-05-13] MEDS: NAPROXEN 250 MG TAB PO SCH (07:36)
[2019-05-13] MEDS: PANTOPRAZOLE 40 MG/10 ML VIAL IV SCH (07:37)
--- NOTE | 2019-05-13 12:37 | P.DS ---
Providers Date of admission: 05/08/19 12:58 Expected date of discharge: 05/13/19 Attending physician: Anabell Reed Primary care physician: Stated None - Discharge Diagnosis(es) (1) Bowel obstruction Status: Acute (2) Midgut volvulus Status: Acute Hospital Course: The patient presented with a several day history of abdominal pain, nausea and v omiting. 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 He was taken to the OR for release of bowel obstruction. He was given DVT and ulcer prophylaxis. Epidural was used for pain control. NG was used for decompression until bowel function returned. He was then able to be started on a diet and switches to oral pain medications. Patient Condition at Discharge: Good Plan - Discharge Summary Discharge Rx Participant: No New Discharge Prescriptions: No Action Dextroamphetamine/Amphetamine [Dextroamp-Amphetamin 10 mg Tab] 20 mg PO DAILY Discharge Medication List Dextroamphetamine/Amphetamine [Dextroamp-Amphetamin 10 mg Tab] 20 mg PO DAILY 05/08/19 [History] Follow up Appointment(s)/Referral(s): Anabell Reed, [Doctor of Osteopathic Medicine] - 1 Week None,Stated [Primary Care Provider] - 1-2 days Patient Instructions/Handouts: Laparoscopic Appendectomy (DC) Activity/Diet/Wound Care/Special Instructions: You may shower. No driving 2 weeks. You may take motrin or naprosyn instead of pain pills. No lifting more than 10 pounds. Stair are OK. Walking outside is OK. Call if questions or concerns. Discharge Disposition: HOME SELF-CARE
== END 2019-05-13 11:43 | disposition home or self-care (01) | DRG 331 ==
LOC: EC 10:51 → 6NMEDSUR 12:58
PROVIDERS: ADMIT Surgery; ATTEND Surgery
PROC: 0DTJ0ZZ Resection of Appendix, Open Approach (ICD-10-PCS; principal; 2019-05-08 16:15)
PROC: 0DS80ZZ Reposition Small Intestine, Open Approach (ICD-10-PCS; principal; 2019-05-08 16:15)
DX: K56.2 Volvulus (principal); F17.200 Nicotine dependence, unspecified, uncomplicated; Z82.5 Family history of asthma and other chronic lower respiratory diseases; Z79.899 Other long term (current) drug therapy; K38.1 Appendicular concretions
CPT/HCPCS: 36415; 71045; 72020; 74177; 80048; 80053; 81001; 82150; 83605; 83690; 85025; 85027; 88304; 96361; 96374; 96375; 99285